=== PATIENT | female | born 1995 | race Caucasian/White ===

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

== ENCOUNTER 2017-05-15 14:37 | Emergency (ER) | payer MEDICAID ==
--- NOTE | 2017-05-15 17:28 | ER Document Report ---
HPI - HPI Patient complains to provider of: cough, ear pain Onset: Last week Onset/Duration: Gradual Pain Level: 2 Context: 21-year-old ex-smoker for 3 months is complaining of a cough for a week and ear pain. She has been putting cotton in her ears. No fever. Associated Symptoms: None Exacerbated by: Denies Relieved by: Denies Similar symptoms previously: Yes Recently seen / treated by doctor: No - ROS ROS below otherwise negative: Yes Systems Reviewed and Negative: Yes All other systems reviewed and negative - REPRODUCTIVE Reproductive: DENIES: : Past Medical History - General Information source: Patient - Social History Smoking Status: Former Smoker Frequency of alcohol use: None Drug Abuse: None Lives with: Spouse/Significant other Family History: Reviewed & Not Pertinent Patient has suicidal ideation: No Patient has homicidal ideation: No Renal/ Medical History: Reports: Hx Kidney Stones. Denies: Hx Peritoneal Dialysis Past Surgical History: Reports: Hx Kidney (Renal Surgery) - stents both sides, Hx Urinary Tract Surgery - ureteral stents - Immunizations Immunizations up to date: Yes Hx Diphtheria, Pertussis, Tetanus Vaccination: Yes Vertical Provider Document - CONSTITUTIONAL Agree With Documented VS: Yes Exam Limitations: No Limitations General Appearance: No Apparent Distress - INFECTION CONTROL TRAVEL OUTSIDE OF THE [place] IN LAST 30 DAYS: No - HEENT HEENT: Normocephalic. negative: Conjuctival Injection, Pharyngeal Erythema Notes: Base of right canal with inflamed, bloody abrasion, TMs are normal - NECK Neck: Supple. negative: Lymphadenopathy-Left, Lymphadenopathy-Right - RESPIRATORY Respiratory: Breath Sounds Normal, No Respiratory Distress O2 Sat by Pulse Oximetry: 98 - CARDIOVASCULAR Cardiovascular: Regular Rate, Regular Rhythm - MUSCULOSKELETAL/EXTREMETIES Musculoskeletal/Extremeties: MAEW - NEURO Level of Consciousness: Awake, Alert, Appropriate - DERM Integumentary: Warm, Dry Course - Re-evaluation Re-evalutation: 05/15/17 18:08 chest xray prelim negative. 05/15/17 18:28 final chest xray is negative. - Vital Signs Vital signs: Temp Pulse Resp BP Pulse Ox 98.4 F 97 H 15 118/74 98 05/15/17 14:52 05/15/17 14:52 05/15/17 14:52 05/15/17 14:52 05/15/17 14:52 Discharge - Discharge Clinical Impression: Otalgia, bilateral, Upper respiratory disease, Cough, Bronchitis Abrasion of right ear canal Qualifiers: Encounter type: initial encounter Qualified Code(s): S00.411A - Abrasion of right ear, initial encounter Condition: Good Disposition: HOME, SELF-CARE Instructions: Anti-Inflammatory Medication ([facility]), Cough Suppressant & Expectorant Medications, Family Physicians / Practices, Inhaled Bronchodilators ([facility]), Steroid Medication, Upper Respiratory Illness ([facility]) Additional Instructions: plenty of fluids no more tissue in the ears tylenol and motrin for pain cool mist humidifier at night, wash it daily see family practice doctor for follow up to er if worse Prescriptions: Albuterol Sulfate [Proair HFA Inhalation Aerosol 8.5 gm MDI] 2 puff IH Q3HP PRN #1 [id number] PRN Reason: Ibuprofen [Motrin 800 mg Tablet] 800 mg PO Q8HP PRN #30 tablet PRN Reason: Referrals: SUNG BURR DO [Primary Care Provider] - Follow up as needed
--- NOTE | 2017-05-15 18:19 | RADIOLOGY REPORT (SQ) ---
EXAM DESCRIPTION: CHEST PA/LAT COMPLETED DATE/TIME: 05/15/2017 6:02 pm REASON FOR STUDY: cough for 1 week COMPARISON: None. EXAM PARAMETERS: NUMBER OF VIEWS: two views TECHNIQUE: Digital Frontal and Lateral radiographic views of the chest acquired. RADIATION DOSE: NA LIMITATIONS: none FINDINGS: LUNGS AND PLEURA: No opacities, masses or pneumothorax. No pleural effusion. MEDIASTINUM AND HILAR STRUCTURES: No masses or contour abnormalities. HEART AND VASCULAR STRUCTURES: Heart normal size. No evidence for failure. BONES: No acute findings. HARDWARE: None in the chest. OTHER: No other significant finding. IMPRESSION: NO SIGNIFICANT RADIOGRAPHIC FINDING IN THE CHEST. TECHNICAL DOCUMENTATION: JOB ID: [id number] [employer]- All Rights Reserved
[2017-05-15 18:52] VITALS: BP 124/88
== END 2017-05-15 18:52 | disposition home or self-care (01) ==
LOC: ER 14:37
DX: J40 Bronchitis, not specified as acute or chronic (principal); J39.9 Disease of upper respiratory tract, unspecified; R05 Cough; S00.411A Abrasion of right ear, initial encounter; X58.XXXA Exposure to other specified factors, initial encounter; H92.03 Otalgia, bilateral; Z87.891 Personal history of nicotine dependence
CPT/HCPCS: 71046; 99283

== ENCOUNTER 2018-05-15 11:53 | Emergency (ER) | payer MEDICAID ==
[2018-05-15 11:57] VITALS: BP 121/73
--- NOTE | 2018-05-15 12:52 | ER Document Report ---
HPI - HPI Time Seen by Provider: 05/15/18 12:14 Pain Level: Denies Notes: Patient is an otherwise healthy 22-year-old female who presents to the emergency department with chief complaint of cough, nasal congestion and sore throat. Patient reports no fevers, nausea, vomiting or diarrhea. Patient has had strep in the past. - CONSTITUTIONAL Constitutional: DENIES: Fever, Chills - EENT EENT: REPORTS: Sore Throat - RESPIRATORY Respiratory: REPORTS: Coughing - REPRODUCTIVE LMP: 04/26/18 Reproductive: DENIES: : Past Medical History - General Information source: Patient - Social History Smoking Status: Current Every Day Smoker Chew tobacco use (# tins/day): No Frequency of alcohol use: None Drug Abuse: None Family History: Reviewed & Not Pertinent Patient has suicidal ideation: No Patient has homicidal ideation: No Renal/ Medical History: Reports: Hx Kidney Stones. Denies: Hx Peritoneal Dialysis Past Surgical History: Reports: Hx Kidney (Renal Surgery) - stents both sides, Hx Urinary Tract Surgery - ureteral stents - Immunizations Immunizations up to date: Yes Hx Diphtheria, Pertussis, Tetanus Vaccination: Yes Vertical Provider Document - CONSTITUTIONAL Notes: PHYSICAL EXAMINATION: GENERAL: Well-appearing, well-nourished and in no acute distress. HEAD: Atraumatic, normocephalic. EYES: Pupils equal round extraocular movements intact, conjunctiva are normal. ENT: Nares patent, mild tonsillar swelling with mild erythema, no exudates. Tonsils not touching, uvula midline. Bilateral TMs unremarkable. NECK: Normal range of motion, no cervical lymphadenopathy. LUNGS: No respiratory distress, lung sounds clear to auscultation bilaterally. Musculoskeletal: Normal range of motion NEUROLOGICAL: Normal speech, normal gait. PSYCH: Normal mood, normal affect. SKIN: Warm, Dry, normal turgor, no rashes or lesions noted. - INFECTION CONTROL TRAVEL OUTSIDE OF THE [place] IN LAST 30 DAYS: No Course - Re-evaluation Re-evalutation: 05/15/18 12:54 Rapid strep is negative. Patient diagnosed with viral upper respiratory illness and discharged home in stable condition. - Vital Signs Vital signs: Temp Pulse Resp BP Pulse Ox 97.8 F 97 16 121/73 100 05/15/18 11:56 05/15/18 11:56 05/15/18 11:56 05/15/18 11:56 05/15/18 11:56 Discharge - Discharge Clinical Impression: Viral upper respiratory illness Condition: Stable Disposition: HOME, SELF-CARE Additional Instructions: Your rapid strep test today was negative. Your symptoms are most likely due to a viral infection it should resolve over the next 7-14 days. You should take [id number] guanfacine per bottle instructions to help thin the mucus. For nasal congestion: I would recommend that you get nehh-nec-[id number] oxymetazoline also known is afrin. Use only per bottle instructions and be sure to never use this for more than 3 days if you can develop severe rebound congestion. You may also use tylenol or ibuprofen as needed for aches and thorat discomfort. Please be sure to drink plenty of fluids and get rest. Return to the emergency department he began having difficulty breathing, chest pain, persistent vomiting, or any other symptoms that are concerning to you. Forms: Return to Work
== END 2018-05-15 13:15 | disposition home or self-care (01) ==
LOC: ER 11:53
DX: J06.9 Acute upper respiratory infection, unspecified (principal); R09.81 Nasal congestion; F17.200 Nicotine dependence, unspecified, uncomplicated; Z87.442 Personal history of urinary calculi
CPT/HCPCS: 87070; 87880; 99283

== ENCOUNTER 2019-05-24 15:51 | Emergency (ER) | payer SELFPAY ==
[2019-05-24] MEDS ORDERED: DIPH/PERTUSS(ACELL)/TETANUS VAC/PF 0.5 ML SYR (>=10YO) IM ONE (16:32)
--- NOTE | 2019-05-24 16:34 | ER Document Report ---
ED Medical Screen (RME) - General Stated Complaint: POSSIBLE LACERATION OF FOOT Time Seen by Provider: 05/24/19 16:29 Mode of Arrival: Wheelchair Information source: Patient Notes: Patient presents emergency department with a laceration to her left foot. [place] the beach on [place] and cut her foot possibly on an oyster. Laceration of approximately 4-1/2 cm. No active bleeding. Is unsure when her last tetanus was. I have greeted and performed a rapid initial assessment of this patient. A comprehensive ED assessment and evaluation of the patient, analysis of test results and completion of the medical decision making process will be conducted by additional ED providers. TRAVEL OUTSIDE OF THE [place] IN LAST 30 DAYS: No - Related Data Allergies/Adverse Reactions: No Known Allergies Allergy (Verified 05/24/19 16:17) Past Medical History Renal/ Medical History: Reports: Hx Kidney Stones. Denies: Hx Peritoneal Dialysis Past Surgical History: Reports: Hx Kidney (Renal Surgery) - stents both sides, Hx Urinary Tract Surgery - ureteral stents - Immunizations Immunizations up to date: Yes Hx Diphtheria, Pertussis, Tetanus Vaccination: Yes Physical Exam - Vital signs Vitals: Temp Pulse Resp BP Pulse Ox 98.6 F 98 18 150/93 H 100 05/24/19 15:56 05/24/19 15:56 05/24/19 15:56 05/24/19 15:56 05/24/19 15:56 Course - Vital Signs Vital signs: Temp Pulse Resp BP Pulse Ox 98.6 F 98 18 150/93 H 100 05/24/19 15:56 05/24/19 15:56 05/24/19 15:56 05/24/19 15:56 05/24/19 15:56
--- NOTE | 2019-05-24 17:46 | RADIOLOGY REPORT (SQ) ---
EXAM DESCRIPTION: FOOT LEFT COMPLETE COMPLETED DATE/TIME: 05/24/2019 5:29 pm REASON FOR STUDY: laceration ?fb COMPARISON: None. NUMBER OF VIEWS: Three views. TECHNIQUE: AP, lateral and oblique radiographic images acquired of the left foot. LIMITATIONS: None. FINDINGS: MINERALIZATION: Normal. BONES: No acute fracture or dislocation. No worrisome bone lesions. JOINTS: No effusions. SOFT TISSUES: Tiny radio dense foreign bodies seen only on the lateral view at the level of the poste rior calcaneus. OTHER: No other significant finding. IMPRESSION: No fracture. Likely foreign body. COMMENT: Recommend ultrasound to better identify the location of the foreign body. TECHNICAL DOCUMENTATION: JOB ID: [id number] [employer]- All Rights Reserved Reading location - IP/workstation name: [email or web address]
[2019-05-24] MEDS ORDERED: CIPROFLOXACIN HCL 500 MG TABLET PO ONE (18:02)
[2019-05-24] MEDS ORDERED: CEPHALEXIN 500 MG CAPSULE PO ONE (18:02)
--- NOTE | 2019-05-24 18:42 | ER Document Report ---
ED General - General Chief Complaint: Laceration Stated Complaint: POSSIBLE LACERATION OF FOOT Time Seen by Provider: 05/24/19 16:29 Mode of Arrival: Wheelchair Notes: CHIEF COMPLAINT: Laceration left heel HPI: 23-year-old female presenting to the emergency department complaining of 2 lacerations to the medial aspect of the left heel. Patient was wearing croc shoes on the beach and her foot sank into the sand when she pulled the back she ran the inside of the foot along some oyster shells cutting the foot. Not up-to-date on tetanus vaccination denies numbness or tingling in the toes. ROS: See HPI - all other systems were reviewed and are otherwise negative Constitutional: no fever Integumentary: + laceration laceration Allergy: no hives Musculoskeletal: no extremity pain or swelling Neurological: no numbness/tingling, no weakness MEDICATIONS: I agree with the patient medications as charted by the RN. ALLERGIES: I agree with the allergies as charted by the RN. PAST MEDICAL HISTORY/PAST SURGICAL HISTORY: Reviewed and agree as charted by RN. SOCIAL HISTORY: Reviewed and agree as charted by RN. FAMILY HISTORY: No significant familial comorbid conditions directly related to patient complaint EXAM: Reviewed vital signs as charted by RN. CONSTITUTIONAL: Alert and oriented and responds appropriately to questions. Well-appearing; well-nourished, mild distress secondary to discomfort HEAD: Normocephalic; atraumatic EYES: Conjunctivae clear, sclerae non-icteric ENT: normal nose; no rhinorrhea; moist mucous membranes NECK: Supple without meningismus CARD: symmetric distal pulses RESP: Normal chest excursion without splinting or tachypnea ABD/GI: non-distended. BACK: The back appears normal and is non-tender to palpation, there is no CVA tenderness EXT: Normal ROM in all joints; non-tender to palpation; no cyanosis, no effusions, no edema SKIN: Normal color for age and race; warm; dry; good turgor; there are 2 lacerations on the medial aspect of the left calcaneus. The posterior laceration measures approximately 4 cm the more distal laceration measures 2 cm. No visible or palpable foreign bodies. The wound edges are reasonably well approximated with only 2 to 3 mm of separation at the widest point. NEURO: Moves all extremities equally; Motor and sensory function intact PSYCH: The patient's mood and manner are appropriate. Grooming and personal hygiene are appropriate. MDM: 23-year-old female with a pair of lacerations from an oyster shell on the calcaneus medial aspect. Do not visualize or palpate a foreign body on exam clinically. Possible small foreign body in the posterior laceration distally. I discussed this at length with the patient. Did attempt to probe and locate without finding foreign body. Question whether they were on the skin. Will have nursing copiously irrigate we will not close the wound as it is a contaminated wound will place patient on Keflex and Cipro nonweightbearing for 5 days follow-up closely with PCP for wound check return for signs of infection TRAVEL OUTSIDE OF THE [place] IN LAST 30 DAYS: No - Related Data Allergies/Adverse Reactions: No Known Allergies Allergy (Verified 05/24/19 16:17) Past Medical History - General Information source: Patient - Social History Smoking Status: Current Every Day Smoker Family History: Reviewed & Not Pertinent Patient has suicidal ideation: No Patient has homicidal ideation: No Renal/ Medical History: Reports: Hx Kidney Stones. Denies: Hx Peritoneal Dialysis Past Surgical History: Reports: Hx Kidney (Renal Surgery) - stents both sides, Hx Urinary Tract Surgery - ureteral stents - Immunizations Immunizations up to date: Yes Hx Diphtheria, Pertussis, Tetanus Vaccination: Yes Physical Exam - Vital signs Vitals: Temp Pulse Resp BP Pulse Ox 98.6 F 98 18 150/93 H 100 05/24/19 15:56 05/24/19 15:56 05/24/19 15:56 05/24/19 15:56 05/24/19 15:56 Course - Vital Signs Vital signs: Temp Pulse Resp BP Pulse Ox 98.6 F 98 18 150/93 H 100 05/24/19 15:56 05/24/19 15:56 05/24/19 15:56 05/24/19 15:56 05/24/19 15:56 Discharge - Discharge Clinical Impression: Laceration of foot Qualifiers: Encounter type: initial encounter Laterality: left Qualified Code(s): S91.312A - Laceration without foreign body, left foot, initial encounter Condition: Stable Disposition: HOME, SELF-CARE Additional Instructions: Clean the wound area daily with soap and water. Apply antibiotic ointment and a dressing over the wound area until healed. Take the oral antibiotics as prescribed. Pain medications as prescribed. Nonweightbearing for 5 days, follow-up closely with her primary care provider for reevaluation of the wound area. There was a possibility that there might have been a small foreign body in the lower aspect of the wound as discussed. If you see any redness or discharge from the wound area please return for reevaluation Prescriptions: Ciprofloxacin HCl [Cipro 500 mg Tablet] 500 mg PO BID 7 Days #14 tablet Cephalexin Monohydrate [Keflex 500 mg Capsule] 500 mg PO Q6H 7 Days capsule Naproxen 500 mg PO BID #14 tablet Forms: Return to Work Referrals: KELVIN MAR JR, DO [ACTIVE PROVISIONAL STAFF] - Follow up as needed
[2019-05-24 18:57] VITALS: BP 141/85
== END 2019-05-24 18:58 | disposition home or self-care (01) ==
LOC: ER 15:51
DX: S91.312A Laceration without foreign body, left foot, initial encounter (principal); W26.9XXA Contact with unspecified sharp object(s), initial encounter; Y92.832 Beach as the place of occurrence of the external cause; F17.200 Nicotine dependence, unspecified, uncomplicated; Z87.442 Personal history of urinary calculi; Z23 Encounter for immunization
CPT/HCPCS: 90471; 90715; 99283